=== PATIENT | female | born 1970 | race Caucasian/White ===

== ENCOUNTER → 2020-01-30 13:30 | Outpatient (BNVA) | payer SELFPAY | PROVIDERS: PCP Family Medicine; Visit Provider Registered Nurse | DX: F31.32 Bipolar disorder, current episode depressed, moderate (principal); Z79.899 Other long term (current) drug therapy | CPT/HCPCS: 80053; 80178; 85025 ==

== ENCOUNTER → 2021-03-23 09:56 | Outpatient (BNVA) | payer SELFPAY | PROVIDERS: PCP Family Medicine; Visit Provider Nurse Practitioner | DX: R05 Cough (principal); R53.83 Other fatigue; F41.1 Generalized anxiety disorder | CPT/HCPCS: 87400; 87635 ==

== ENCOUNTER → 2021-05-09 13:34 | Outpatient (BNVA) | payer SELFPAY | PROVIDERS: PCP Family Medicine; Visit Provider Nurse Practitioner | DX: R05.9 Cough, unspecified (principal) | CPT/HCPCS: 71046 ==

== ENCOUNTER → 2021-06-28 16:08 | Outpatient (BNVA) | payer SELFPAY | PROVIDERS: PCP Family Medicine; Visit Provider Nurse Practitioner Family | DX: R50.9 Fever, unspecified (principal) | CPT/HCPCS: 87635 ==

== ENCOUNTER → 2021-08-02 11:29 | Outpatient (BNVA) | payer SELFPAY | PROVIDERS: PCP Family Medicine; Visit Provider Nurse Practitioner | DX: J02.9 Acute pharyngitis, unspecified (principal); R05.9 Cough, unspecified | CPT/HCPCS: 87071; 87635; 87880 ==